=== PATIENT | male | born 2000 | race Caucasian/White ===

== ENCOUNTER 2019-10-11 13:00 | Emergency (ER) | payer OTHER ==
[~2019-10-11] VITALS: Ht 182.9 cm; Wt 70.3 kg
[2019-10-11] MEDS ORDERED: PREDNISONE20 MG PO (14:58)
[2019-10-11] MEDS ORDERED: VENTOLIN HFA18 GM INH (14:58)
[2019-10-11] MEDS ORDERED: DOXYCYCLINE HY100 MG PO (14:58)
== END 2019-10-11 15:03 | disposition home or self-care (01) ==
LOC: ED 13:00
DX: S16.1XXA Strain of muscle, fascia and tendon at neck level, initial encounter (principal); J40 Bronchitis, not specified as acute or chronic; J32.9 Chronic sinusitis, unspecified; X58.XXXA Exposure to other specified factors, initial encounter
CPT/HCPCS: 99283

== ENCOUNTER 2020-05-30 19:56 | Emergency (ER) | payer OTHER ==
[~2020-05-30] VITALS: Ht 182.9 cm; Wt 70.3 kg
[~2020-05-30 19:56] MED LIST: DOXYCYCLINE HY100 MG PO; PREDNISONE20 MG PO; VENTOLIN HFA18 GM INH
--- OUTSIDE RECORDS SUMMARY | 2020-05-30 20:00 | XMS ---
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 [facility] has no Care Guidelines for this patient. Trav VISIT COUNT (12 MO.) [address] TOTAL 3 NOTE: Visits indicate total known visits. ED/C VISIT TRACKING (12 MO.) [facility] COMPLAINT: - BODY SHAKES/CHEST TIGHTNESS 05/24/2020 22:03 [facility] [place] TYPE: Emergency DIAGNOSES: - LEGAL BLOOD DRAW 10/11/2019 13:01 [facility] [place] TYPE: Emergency COMPLAINT: - COUGH, HEADACHE DIAGNOSES: - Chronic sinusitis, unspecified - Bronchitis, not specified as acute or chronic - Strain of muscle, fascia and tendon at neck level, initial en - Cervicalgia - Exposure to other specified factors, initial encounter INPATIENT VISIT TRACKING (12 MO.) No inpatient visits to display in this time frame [email or web address]
[2020-05-30] MEDS ORDERED: TERBINAFINE HC250 MG PO (20:11)
--- NOTE | 2020-05-30 22:47 | EKG ---
[facility] [address] [facility] [place] [address] Signed Marked sinus bradycardia Rightward axis Abnormal ECG No previous ECGs available Confirmed by JEREMI SUTTON MD ([id number] on 05/30/2020 10:47:25 PM Electronically Signed By: JEREMI SUTTON MD 05/30/20 2247 PATIENT NAME: ZANE KIETH Electrocardiogram DATE OF : [birth year] PHYSICIAN: JEREMI SUTTON MD REPORT #: [id number] REPORT IS CONFIDENTIAL AND NOT TO BE RELEASED WITHOUT AUTHORIZATION
== END 2020-05-30 22:39 | disposition home or self-care (01) ==
LOC: ED 19:56
DX: R07.9 Chest pain, unspecified (principal)
CPT/HCPCS: 71046; 80053; 84484; 85025; 93005; 93010; 99285-25